=== PATIENT | female | born 1995 | race Caucasian/White ===

== ENCOUNTER 2020-08-31 08:39 | Emergency (ER) | payer BC, SELFPAY ==
[2020-08-31 08:55] VITALS: BP 133/83; PULSE 69; RESP 16; TEMP 36.5; O2SAT 100
--- NOTE | 2020-08-31 08:57 | ED.SKABFB ---
HPI - Skin/Abscess/Foreign Bdy General Stated complaint: Infection Time Seen by Provider: 08/31/20 08:57 Source: patient and RN notes reviewed History of Present Illness HPI narrative: Patient is a 25-year-old female who presents the urgent care with complaints of infection to the right thumb . Patient states that she was doing dishes last night and believes she got something stuck under the nail of the right thumb. Patient states that she picked it out with a needle and is now sore. No other acute complaints. No acute distress noted. Patient aware of the plan of care. Some parts of this dictation were generated by voice recognition software and may contain typographical and/or grammatical inaccuracies. Related Data Allergies Allergy/AdvReac Type Severity Reaction Status Date / Time No Known Allergies Allergy Verified 08/31/20 08:53 Review of Systems Review of Systems: Narrative: CONSTITUTIONAL: Denies fever, chills, or sweats. EYES: Denies visual changes, redness, or discharge. ENT: Denies rhinorrhea, congestion, sore throat, or otalgia. CARDIOVASCULAR: Denies chest pain, palpitations, or edema. RESPIRATORY: Denies cough or dyspnea. GASTROINTESTINAL: Denies abdominal pain, nausea, vomiting, or diarrhea. GENITOURINARY: Denies dysuria or hematuria. SKIN: Reports of soreness around the nailbed of the right thumb MUSCULOSKELETAL: Denies back pain, joint pain, or myalgia. NEUROLOGIC: Denies headache, numbness, or weakness. All other systems reviewed are negative, except as documented in HPI. PMFSH Comments At the time of my signature, I reviewed and agree with the nursing past medical, surgical, social, and family history. There is no relevant family history pertinent to the patient complaint. Exam Narrative: Exam Narrative: GENERAL: This is a well-nourished, well-developed patient, in no apparent distress. HEAD: normocephalic, atraumatic. EYES: PERRL. Sclera clear/white. Vision is grossly intact. EARS: External ears normal NOSE: External nose normal with no obvious nasal discharge, nares without redness, no rhinorrhea. THROAT: Mucous membranes moist SKIN: Right thumb nailbed intact without any erythema/edema. No notable paronychia I. Warm, intact with no suspicious lesions or rash, good texture and turgor. NEURO: awake, alert, and oriented to person, place and time. There were no obvious focal neurologic abnormalities. EXTREMITIES: No obvious injury, erythema or edema noted to the right thumb. Positive strong right radial pulse with capillary refill less than 2 seconds. Normal range of motion to right upper extremity. Course Vital Signs Vital signs: Vital Signs Temperature 97.7 F 08/31/20 08:55 Pulse Rate 69 08/31/20 08:55 Respiratory Rate 16 08/31/20 08:55 Blood Pressure 133/83 08/31/20 08:55 Pulse Oximetry 100 08/31/20 08:55 Temperature 97.7 F 08/31/20 08:55 Pulse Rate 69 08/31/20 08:55 Respiratory Rate 16 08/31/20 08:55 Blood Pressure 133/83 08/31/20 08:55 Pulse Oximetry 100 08/31/20 08:55 Reviewed MDM - Skin/Abscess/Foreign Bdy MDM Narrative Medical decision making narrative: Advised the patient not to pick on the nailbed or use a needle under the skin. Soak the finger in plain Dial soap and water. May wrap with a Band-Aid if necessary. No antibiotic needed at this time. Apply prescription cream to the affected area twice a day. If you notice any increase in pain associated with redness, drainage, fever, chills?go to the emergency room. Follow-up with your PCP within 2 to 5 days or for worsening symptoms or failure to improve. Differential Diagnosis Differential diagnosis: Likely abscess of skin or subcutaneous tissue, urticaria and impetigo Critical Care Time Critical Care Time Critical Care Time: No Discharge Plan Discharge Clinical Impression: Abrasion of skin of right thumb Patient Disposition: Home, Self-Care Condition: Stable Instructions: Antibio
== END 2020-08-31 09:05 | disposition home or self-care (01) ==
PROVIDERS: Emergency Provider Nurse Practitioner Family
DX: S60.311A Abrasion of right thumb, initial encounter (principal); X58.XXXA Exposure to other specified factors, initial encounter
CPT/HCPCS: 99213; G0463